=== PATIENT | female | born 1985 | race African-American/Black ===

== ENCOUNTER 2019-11-26 18:57 | Emergency (ER) | payer BC, OTHER ==
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
[2019-11-26 19:30] VITALS: BP 125/87; PULSE 65; TEMP 98.7; BMI 33.5
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
== END 2019-11-26 21:30 | disposition home or self-care (01) ==
LOC: JER 18:57
DX: S09.8XXA Other specified injuries of head, initial encounter (principal); R51 Headache; V43.52XA Car driver injured in collision with other type car in traffic accident, initial encounter; Y92.414 Local residential or business street as the place of occurrence of the external cause; Y93.89 Activity, other specified; Y99.8 Other external cause status; Z88.5 Allergy status to narcotic agent; Z88.6 Allergy status to analgesic agent
CPT/HCPCS: 70450-TC; 99281-25

== ENCOUNTER 2019-12-05 12:27 | Emergency (ER) | payer BC, OTHER ==
[2019-12-05 13:07] VITALS: BP 136/79; PULSE 64; TEMP 98; BMI 33.5
--- NOTE | 2019-12-05 13:56 | PDOC ---
History of Present Illness - General Chief Complaint: Rectal Bleed Stated Complaint: RECTAL BLEEDING Time Seen by Provider: 12/05/19 13:50 History Source: Patient - History of Present Illness Timing/Duration: reports: intermittent Quality: reports: mild Past History - Past Medical History Allergies/Adverse Reactions: Allergies Allergy/AdvReac Type Severity Reaction Status Date / Time acetaminophen [From Vicodin] Allergy Verified 12/05/19 13:39 hydrocodone bitartrate Allergy Verified 12/05/19 13:39 [From Vicodin] - Reproductive History (#): 1 Para: 0 Therapeutic (s) & number: Yes (1) - Psycho Social/Smoking Cessation Hx Smoking History: Never smoked Information on smoking cessation initiated: No Hx Alcohol Use: No Drug/Substance Use Hx: No Review of Systems - Review of Systems Constitutional: No: Chills, Fever, Malaise, Weakness ABD/GI: Yes: Diarrhea, Abdominal cramping. No: Nausea, Vomiting *Physical Exam - Vital Signs Last Vital Signs Temp Pulse Resp BP Pulse Ox 98.0 F 64 16 136/79 100 12/05/19 13:04 12/05/19 13:04 12/05/19 13:04 12/05/19 13:04 12/05/19 13:04 - Physical Exam General Appearance: Yes: Appropriately Dressed. No: Apparent Distress HEENT: positive: Normal Voice Neck: positive: Supple Respiratory/Chest: negative: Respiratory Distress Gastrointestinal/Abdominal: positive: Soft. negative: Tender Integumentary: positive: Dry, Warm Neurologic: positive: Fully Oriented, Alert, Normal Mood/Affect Medical Decision Making - Medical Decision Making 12/05/19 13:51 34 yo F, h/o hemorrhoids, idiopathic CD4 lymphocytopenia, on fluconazole and Zithromax 3 times a week prophylactically for the past 5 years but has been non- compliant w/ meds per pt, here with diffuse abdominal cramping and loose stool on and off x5 days. States she has 1-2 e/o lose stools in a 24 hr period. Noticed 1 e/o small amount of bright red blood in stool this a.m. No nausea, vomiting, fever, chills, rectal pain or pressure. States she came in because coworkers told her to come to the ED. No recent travel sick contacts or unusual food see exam ?Viral illness, cdif considered given chronic antibiotic use for her idiopathic CD4 lymphocytopenia Stable and well liliya w/ benign abd Given clinical assessment, will hold off on labs and stool studies at this time , of notept was asked to provide stool sample but states she is not able to at this time Will dc with supportive treatment with strict return precautions as d/w pt 12/05/19 14:06 Discharge - Discharge Information Problems reviewed: Yes Clinical Impression/Diagnosis: Abdominal cramps Diarrhea Qualifiers: Diarrhea type: unspecified type Qualified Code(s): R19.7 - Diarrhea, unspecified Condition: Good Disposition: HOME - Follow up/Referral Referrals: Tim Valencia [Primary Care Provider] - - Patient Discharge Instructions Additional Instructions: You may have a viral illness. We also considered a condition called C. difficile given that you are on chronic antibiotics but as your vitals are stable and your abdominal exam is normal we have held off on getting labs and sending a stool stool study today but you should return to ED immediately if symptoms persist and or worsen as discussed in length today Drink plenty of fluids. You can also take Pepto-Bismol as directed - Post Discharge Activity
== END 2019-12-05 14:30 | disposition home or self-care (01) ==
LOC: JER 12:27
DX: R10.2 Pelvic and perineal pain (principal); Z88.8 Allergy status to other drugs, medicaments and biological substances; D72.810 Lymphocytopenia
CPT/HCPCS: 99281-25